=== PATIENT | female | born 1965 | race Caucasian/White ===

== ENCOUNTER → 2016-08-31 | Outpatient (CLI) | payer OTHER ==
[2016-08-31 14:21] VITALS: BP 97/66; PULSE 74; RESP 14; TEMP 98.7
--- NOTE | 2016-08-31 14:35 | P.CONS ---
History of Present Illness - Reason for Consult Consult date: 08/31/16 - History of Present Illness This is the initial consultation visit for this 50 years old female, with a chronic history of severe neck pain with radiation to the upper extremity and also is complaining of severe low back pain with radiation to the lower extremities, she reported that this pain started more than 30 years ago , and she denies any initiating event , the pain in the neck radiating to the upper extremity associated with numbness and tingling sensation, also the low back pain radiated to the lower extremity associated with numbness and tingling sensation, the pain is constant and increases with any activity, and interfering with her quality of life, she denies any motor or sensory deficit she denies any fever or night sweats, and she denies any change in the bowel movements or urination, she tried physical therapy in the past and had no benefit from it, and she is her today trying to find that there is anything be done to help her low back pain and neck pain. Medications and Allergies Home Medications Medication Instructions Recorded Confirmed Type Buprenorphine HCl/Naloxone HCl 10 mg SL BID 08/31/16 08/31/16 History [Suboxone 8 mg-2 mg Sl Film] Citalopram Hydrobromide [CeleXA] 40 mg PO DAILY 08/31/16 08/31/16 History Ibuprofen [Motrin] 800 mg PO Q8HR PRN 08/31/16 08/31/16 History Simvastatin [Zocor] 20 mg PO HS 08/31/16 08/31/16 History Tiotropium [place] [Spiriva 1 spray INHALATION DAILY 08/31/16 08/31/16 History Respimat] Allergies Allergy/AdvReac Type Severity Reaction Status Date / Time Penicillins Allergy Unknown Verified 08/31/16 14:05 Physical Exam Vitals: Intake and Output 08/30/16 08/31/16 08/31/16 22:59 06:59 14:59 Other: Weight 60.781 kg Patient Weight 09/01/16 06:59 Weight 60.781 kg Social history : smoker half a pack per day for more than 30 years, NO ETOH ,, history of heroin addiction and she is currently on Suboxone Family history : , positive for rheumatoid arthritis Review of Systems : 1- Constitutional : no chills , no fever , no night sweats , 2- Ears : no ear discharge , no change in hearing 3-Nose, Mouth ,Throat ; no bleeding gums, no sore throat , no epistaxis , 4-Cardiovascular : Denies chest pain, , no orthopnea , no palpitation 5-Respiratory : Denies cough , no dyspnea , no hemoptysis 6-Gastrointestinal :, no change in bowel habits , no coffee- ground emesis . 7-Genitourinary : No hematuria , no discharge , no incontinence, 8-Musculoskeletal : No gait dysfunction , report low back pain , reports neck pain , 9- Neurological : no ataxia , no tremor , no sezure , 10-Psychatric , no suicidal ideation no hallucination , anxious 11- Endocrine : no cold intolerence , no polyuria , no polydypsia , 12-Hematologic : no easy bleeding , no easy brusing , 13-Allergic / immunology : no angioedema , no wheezing ,no allergic rhinitis 14-Integumentary : no brttle nails , no change hair / nails , no foot/leg ulcers . Physical Examinations : 1-Constitutional : Cooperative , not in acute distress . 2-HEENT : nech ; supple , no Lymphadenopathy , no Thyromegaly , :eyes , no icterus, no photophobia . ENT : , normal oropharynx , no Thrush 3- Respiratory : Chest clear to auscultations Bilaterally , no wheezing . 4- Cardiovascular : regular rate and rhythem , S1 , S2 , no S3 , no S4. 5- Gastrointestinal: abdomen soft no tenderness , no organomegally . 6- Genitourinary : Defferred . 7-Integumentary : No cellulitis , no ulcers , normal skin turgor , no cyanotic . 8- neurologic : Cranial nerve II to XII intact , no focal neurological deffecit 9-psychatric : alert , oriented X 3 , appropriate affect , intact judgment and insight . 10-Lymphatic : no Lymphadenopathy. 11- musculoskeltal: normal gait exams of the cervical spine = motor stregnth in the deltoid and biceps, normal right side , normal Left side motor stregnth biceps and the wrist extensors normal right side ,normal left side . motor stregnth in the triceps muscle . normal Right side , normal Left side deep tendon reflexes normal at the biceps , normal at Brachioradialis , normal at triceps. positive cervical facet loading test . Multiple trigger point in the cervical paravertebral area, and upper thoracic trapezius muscles exams of the Lumber spine = moter stegnth lower extremities , thigh and legs 5/5 Right side , 5/5 Left side deep tendon reflexes : normal Knee Jerk , normal ankle Jerk positive lumber facet Loading Test Range of motion of the lumbar spine Flexion 30 degrees, extension 10 degrees strait leg raising test , positive at degree Fabere test positive RT and positive LT . Tenderness over the trochanteric bursa bilaterally Results Comments: MRI of the cervical spine= C5 6 cervical disc bulging and C6 7 disc degeneration MRI of the lumbar spine= L4 5 disc desiccation and L3 4 disc protrusion and L1- 2 disc bulging Assessment and Plan Plan: Assessment and plan = - Lumbar radiculopathy, lumbar herniated disc disease and lumbar degenerative disc disease -Cervical radiculopathy, cervical degenerative disc disease , -History of fibromyalgia - diagnoses, prognosis, and treatment options including but not limited to physical therapy, surgical interventions, interventional therapies and medication management including narcotics and adjuvant medication were discussed with the patient and all questions answered to the patient's satisfaction. -medication refile = patient could benefit from Lyrica 25 mg 3 times a day -procedure= patient could benefit from lumbar epidural steroid injection under fluoroscopy guidance Time with Patient: Greater than 30
== END | disposition home or self-care (01) ==
LOC: PNWHC3 13:34
PROVIDERS: ATTEND Specialist
DX: M51.16 Intervertebral disc disorders with radiculopathy, lumbar region (principal); M50.10 Cervical disc disorder with radiculopathy, unspecified cervical region; Z79.899 Other long term (current) drug therapy; Z88.0 Allergy status to penicillin
CPT/HCPCS: 99201

== ENCOUNTER 2016-10-04 06:15 | Day surgery (SDC) | payer OTHER ==
[2016-10-03 10:58] VITALS: BMI 22.1
[2016-10-04 06:40] VITALS: TEMP 97.9
[2016-10-04] MEDS ORDERED: LACTATED RINGERS 1,000 ML IV ONE (06:42)
[2016-10-04] MEDS ORDERED: LIDOCAINE 1% 20 ML VIAL (10MG/ML) FOR IV START INTRADERMA ONE (06:42)
[2016-10-04] MEDS ORDERED: IOHEXOL 180 MG/ML 1 ML ML ONE (07:17)
[2016-10-04] MEDS ORDERED: MIDAZOLAM 2 MG/2 ML VIAL ONE (07:17)
[2016-10-04] MEDS ORDERED: DEXAMETHASONE SOD PHOSPHATE 10 MG/ML 1 ML VIAL ONE (07:17)
[2016-10-04] MEDS ORDERED: fentaNYL (PF) 50 MCG/ML 2 ML AMP ONE (07:17)
[2016-10-04] MEDS ORDERED: IV FLUID CONTINUATION 600 ML IV ONE (07:40)
--- NOTE | 2016-10-04 07:43 | P.PCN ---
Date of Procedure: 10/04/16 Preoperative Diagnosis: Postoperative Diagnosis: Procedure(s) Performed: Implants: Surgeon: Ghassan Land Pathology: none sent Condition: stable Disposition: PACU Indications for Procedure: Operative Findings: Description of Procedure: PREOPERATIVE DIAGNOSIS: 1-Lumbar radiculitis. POSTOPERATIVE DIAGNOSIS: 1-Lumbar radiculitis. PROCEDURE 1. Lumbar epidural steroid injection under fluoroscopic guidance at the L4-L5 level. 2. Lumbar epidurogram. ANESTHESIA: Local with 1% lidocaine; IV sedation with Versed/fentanyl. EBL: Minimal PROCEDURE INDICATION: The patient with low back pain and radiculitis symptoms unresponsive to conservative treatment. Fluoroscopy was used to optimize visualization of the needle placement and to maximize safety. No use of blood thinners, procedure #1 today. PROCEDURE DESCRIPTION / TECHNIQUE: The patient was seen and identified in the preoperative area. Risks, benefits, complications, and alternatives were discussed with the patient, including but not limited to bleeding, infection, nerve damage, allergic reactions to medications, and incomplete pain relief. The patient agreed to proceed with the procedure and signed the consent after all questions were answered. IV was started, and vital signs were stable. Patient was taken to the OR and time out was completed to confirm patient position, procedure, laterality of pain, and allergies. The patient was placed in the prone position on procedure table and a pillow was placed under the abdomen to reduce lumbar lordosis. The lumbosacral area was prepped and draped in the usual sterile fashion. Critical pause was taken. Vital signs were closely monitored during the procedure. Conscious sedation was used during the procedure to decrease patients anxiety. Using anterior-posterior fluoroscopy, the L4-L5 interlaminar space was identified and the skin over this site was marked and then infiltrated with 1% lidocaine subcutaneously. Subsequently, a 20-gauge 3.5-inch Tuohy epidural needle was inserted and advanced toward the epidural space using the Loss of resistance technique and guided by AP and lateral fluoroscopy. The correct needle position in the epidural space was verified with the injection of 2 mL of the water soluble contrast dye Omnipaque 300 contrast and observing an excellent epidurogram with the epidural spread of the dye, after negative aspiration for blood and CSF and in the absence of paresthesias. Again after negative aspiration, a 8 ml mixture containing 20 mg of Decadron and 5 ml of preservative free Normal Saline, and 2 ml of preservative free lidocaine 1% solution was injected and a washout of epidurogram was seen. Needle was withdrawn intact, skin was cleansed, and bandages were applied. COMPLICATIONS: None COMMENTS: DISPOSITION / PLANS: The patient was placed in a supine position and transferred to the recovery area in a stable condition for observation. There was no evidence of lower extremity motor or sensory deficit after the procedure. Patient was discharged from the recovery room after meeting discharge criteria. Home discharge instructions were given to the patient by the staff. The patient was reexamined prior to discharge and there were no issues. The patient will schedule a follow up in the clinic in 2-4 weeks.
[2016-10-04] MEDS ORDERED: LACTATED RINGERS 1,000 ML IV SCH (07:45)
--- NOTE | 2016-10-04 07:52 | FL ---
EXAMINATION TYPE: FL guided pain mgmt statistic DATE OF EXAM: 10/04/2016 7:36 AM HISTORY: Pain 6 sec fl time used during lumbar epidural 3 images scanned into pacs
[2016-10-04 08:00] VITALS: RESP 18
[2016-10-04 08:19] VITALS: BP 98/56; PULSE 58
== END 2016-10-04 08:42 | disposition home or self-care (01) ==
LOC: ORPAIN 06:15
PROVIDERS: ATTEND Anesthesiology
DX: G89.29 Other chronic pain (principal); M54.5 Low back pain; M54.16 Radiculopathy, lumbar region; F32.9 Major depressive disorder, single episode, unspecified; Z79.1 Long term (current) use of non-steroidal anti-inflammatories (NSAID); Z79.899 Other long term (current) drug therapy; Z88.0 Allergy status to penicillin
CPT/HCPCS: 62323; 99152; J2250; J1100; Q9965; J3010

== ENCOUNTER → 2016-10-25 | Outpatient (CLI) | payer OTHER ==
[2016-10-25 16:53] LABS: Basophils # (A) 0.1 k/uL (0-0.2); Basophils % (A) 1 %; CH 30.7; CHCM 34.5; Eosinophils # (A) 0.1 k/uL (0-0.7); Eosinophils % (A) 2 %; HCT 43.4 % (34.0-46.0); HDW 2.73; HGB 14.7 gm/dL (11.4-16.0); Luc # (Auto) 0.23; Luc % (Auto) 4; Lymphocytes # (A) 2.6 k/uL (1.0-4.8); Lymphocytes % (A) 41 %; MCH 30.4 pg (25.0-35.0); MCV 89.5 fL (80.0-100.0); Mean Platelet Volume 6.7; Monocytes # (A) 0.3 k/uL (0-1.0); Monocytes % (A) 5 %; Neutrophils # (A) 3.1 k/uL (1.3-7.7); Neutrophils % (A) 49 %; RBC 4.85 m/uL (3.80-5.40); RDW 13.6 % (11.5-15.5); WBC 6.4 k/uL (3.8-10.6); WBC (Perox) 6.41
[2016-10-25 17:03] LABS: Appearance,Urine Clear (Clear); Bilirubin,Urine Negative (Negative); Glucose,Urine (UA) Negative (Negative); Ketones,Urine Negative (Negative); Leukocyte Esterase,Urine Negative (Negative); Nitrite,Urine Negative (Negative); Protein,Urine Negative (Negative); Specific Gravity,Urine 1.008 (1.001-1.035); UA Billing (MACRO vs. MICRO) CHEM; Urobilinogen,Urine <2.0 mg/dL (<2.0)
[2016-10-25 17:11] LABS: ALT 15 U/L (9-52); AST 15 U/L (14-36); Alkaline Phosphatase 84 U/L (38-126); Anion Gap 8 mmol/L; Bilirubin, Delta 0.3 mg/dL (0.0-0.2); Blood Urea Nitrogen 23 mg/dL (7-17); Calcium 10.3 mg/dL (8.4-10.2); Carbon Dioxide 21 mmol/L (22-30); Chloride 112 mmol/L (98-107); Glucose 91 mg/dL (74-99); Non-African American GFR(MDRD) >60 (>60 ml/min/1.73 sqM); Potassium 4.2 mmol/L (3.5-5.1); Sodium 141 mmol/L (137-145); Total Bilirubin 0.6 mg/dL (0.2-1.3); Total Protein 7.8 g/dL (6.3-8.2)
[2016-10-26 16:07] LABS: HCV Qualitative Result Not detected (Not detected)
== END | disposition home or self-care (01) ==
LOC: LABWHC1 16:20
DX: N28.9 Disorder of kidney and ureter, unspecified (principal); B18.2 Chronic viral hepatitis C
CPT/HCPCS: 36415; 80053; 81003; 82248; 85025; 87522

== ENCOUNTER 2016-11-03 09:00 | Day surgery (SDC) | payer OTHER ==
[2016-11-01 12:37] VITALS: BMI 21.7
[2016-11-03 09:44] VITALS: TEMP 97.3
[2016-11-03] MEDS ORDERED: LIDOCAINE 1% 20 ML VIAL (10MG/ML) FOR IV START INTRADERMA ONE (10:00)
[2016-11-03] MEDS: LACTATED RINGERS 1,000 ML IV SCH ×2 (10:00→10:02)
[2016-11-03] MEDS ORDERED: MIDAZOLAM 2 MG/2 ML VIAL ONE (10:06)
[2016-11-03] MEDS ORDERED: IOHEXOL 180 MG/ML 1 ML ML ONE (10:06)
[2016-11-03] MEDS ORDERED: DEXAMETHASONE SOD PHOS (MDV) 100 MG/10 ML VIAL ONE (10:06)
--- NOTE | 2016-11-03 10:20 | P.PCN ---
Date of Procedure: 11/03/16 Preoperative Diagnosis: Postoperative Diagnosis: Procedure(s) Performed: PREOPERATIVE DIAGNOSIS: 1- Lumbar Degenerative Disc Diseases 2-Lumbar radiculopathy. 3-lumbar herniated disc disease. 4-cervical radiculopathic POSTOPERATIVE DIAGNOSIS: same as preoperative diagnosis PROCEDURE 1. Lumbar epidural steroid injection under fluoroscopic guidance at the L4-5 level. 2. Lumbar epidurogram. ANESTHESIA: Local with 1% lidocaine 3 ml and IV sedation with Versed 2 mg . EBL: Minimal PROCEDURE INDICATION: The patient with low back pain and radiculitis symptoms unresponsive to conservative treatment. Fluoroscopy was used to optimize visualization of the needle placement and to maximize safety. PROCEDURE DESCRIPTION / TECHNIQUE: The patient was seen and identified in the preoperative area. Risks, benefits , complications including but not limited to infections ,bleeding ,allergic reaction to the medications ,nerve damage and not complete pain releife , and alternatives were discussed with the patient. The patient agreed to proceed with the procedure and signed the consent. IV was started, and vital signs were stable. Patient was taken to the OR and time out was completed. The patient was placed in the prone position on procedure table and a pillow was placed under the abdomen to reduce lumbar lordosis. The lumbosacral area was prepped and draped in the usual sterile fashion.ere closely monitored during the procedure. Conscious sedation was used during the procedure to decrease patients anxiety. Vital signs was monitered during the entire procedure. Using anterior-posterior fluoroscopy, the L4-5 interlaminar space was identified and the skin over this site was marked and then infiltrated with 1% lidocaine subcutaneously. Subsequently, a 20-gauge Tuohy epidural needle was inserted and advanced toward the epidural space using the ``Loss of resistance technique and guided by AP and lateral fluoroscopy. The correct needle position in the epidural space was verified with the injection of 2 mL of the water soluble contrast dye Omnipaque 180 contrast and observing an excellent epidurogram with the epidural spread of the dye, after negative aspiration for blood and CSF and in the absence of paresthesias. Again after negative aspiration, a 6 ml mixture containing 20 mg of Dexamethasone and 2 ml of preservative free Normal Saline, and 2 ml of preservative free lidocaine 1% solution was injected and a washout of epidurogram was seen. Needle was withdrawn intact, skin was cleansed, and bandages were applied. COMPLICATIONS: None DISPOSITION / PLANS: The patient was placed in a supine position and transferred to the recovery area in a stable condition for observation. There was no evidence of lower extremity motor or sensory deficit after the procedure. Patient was discharged from the recovery room after meeting discharge criteria. Home discharge instructions were given to the patient by the staff. The patient was reexamined prior to discharge. The patient will schedule a follow up in the clinic in 2-4 weeks. Implants: Indications for Procedure: Operative Findings: Description of Procedure:
[2016-11-03 10:32] VITALS: RESP 18
[2016-11-03 10:48] VITALS: BP 96/66; PULSE 66
--- NOTE | 2016-11-03 16:19 | FL ---
EXAMINATION TYPE: FL guided pain mgmt statistic DATE OF EXAM: 11/03/2016 CLINICAL HISTORY: Low back pain. TECHNIQUE: Fluoroscopy. COMPARISON: None. FINDINGS: Fluoroscopic guidance was provided during pain relief procedure performed by Dr. Casillas . A total of 1 seconds of fluoroscopic time was utilized during the procedure and 1 spot image is ac quired. Single image acquired shows needle localization at L4 level. IMPRESSION: As Above.
== END 2016-11-03 10:50 | disposition home or self-care (01) ==
LOC: ORPAIN 09:00
PROVIDERS: ATTEND Specialist
DX: M51.16 Intervertebral disc disorders with radiculopathy, lumbar region (principal); M54.12 Radiculopathy, cervical region; Z88.0 Allergy status to penicillin
CPT/HCPCS: 62323; J2250; Q9965; J1100

== ENCOUNTER → 2017-02-22 | Outpatient (CLI) | payer OTHER ==
[2017-02-22 14:53] VITALS: BP 111/63; PULSE 69; RESP 18; TEMP 98.2
--- NOTE | 2017-02-22 15:08 | P.PN ---
Progress Note - Text Progress Note Date: 02/22/17 Patient returns for followup for chronic neck and back pain with radiation to all extremities with numbness/tingling. Patient recently underwent LESI x 2, which provided some relief for short interval. Patient continues on suboxone and Lyrica medications for pain with some relief. Patient denies adverse drug effects from medications. Today, pt denies new-onset weakness, bowel/bladder incontinence, or any other signs or symptoms of cauda equina syndrome. There are no signs of acute intoxication, and no indications of medication diversion or overuse. In addition to above, 13-point review of systems is also negative for chest pain , shortness of breath, changes in vision, changes in hearing, new onset weakness , abdominal pain, diarrhea, extreme fatigue, malaise, fever, skin changes, homicidal or suicidal ideation, or bowel or bladder incontinence. Vital Signs: Reviewed in EMR Gen: WDWN, AAOx3, NAD HEENT: NCAT, EOMI, hearing grossly normal Pulm: resp unlabored Abd: soft, NT, ND Neck: supple, trachea midline Thorax: + tenderness over lateral ribs on left side ROM in flexion lumbar spine: reduced ROM in extension lumbar spine: reduced Lumbar paravertebral tenderness: + Facet loading: + bilateral, L > R SI joint tenderness: + L > R Andrea's test: Straight leg raise: Lower extremity: decreased ROM dorsiflexion/plantarflexion strength, hip flexion/extension, and knee flexion/extension secondary to pain Neuro: CN II-XII grossly intact, muscle strength lower extremities PRESERVED Imaging: thoracic spine x-ray dated 02/07/2017 demonstrates mild to moderate spondylosis especially in the mid to lower thoracic spine. There is some reversal of the normal cervical lordosis and lower cervical spine. Assessment: 1. intercostal neuralgia 2. thoracic spondylosis 3. lumbar radic Plan: 1. Explanation: Opioid and psychological risk scores were reviewed. Diagnoses , prognoses, and multiple treatment options including but not limited to physical therapy, interventional therapies, adjuvant medical therapies, narcotic medication therapies, and surgery were discussed with the patient and all questions were answered to the patient's satisfaction. 2. Opioid agreement: Patient has previously signed narcotic agreement, and was orally counseled to not overuse, abuse, divert, or cell medications, and to take them as prescribed by only 1 healthcare provider. The patient was also counseled to store opioid medications in a safe and preferably locked location. Patient was also counseled against driving or operating heavy equipment while using narcotic medications and also to not use alcohol or any illicit or recreational drugs. The patient verbalized understanding that lack of compliance with any of the above and likely result in failure to renew narcotic prescriptions, possible discharge from the clinic, and possible legal ramifications thereafter if indicated. 3. Counseling: The patient was counseled extensively on SMOKING CESSATION, BODY MASS INDEX, EXERCISE. Specifically, the patient was instructed regarding the importance of smoking cessation, weight control, and exercise in the context of both chronic pain and overall health. 4. Procedures: left intercostal nerve blocks (focus on ribs 5-8) 5. Consultations: None 6. Investigations: None 7. Medications: increase Lyrica to 50 mg #90 with one refill; patient gets suboxone from other physician 8. Disposition: f/u for procedure as scheduled PQRS measures: 1-Patient's medications are documented in the chart. 2-Tobacco use is negative, counseling given 3-Patient has not had a pneumococcal vaccine. 4-Advanced care planning discussed, patient unable to give. 5-Opioid contract NOT signed with the patient. 6-Pain positive, follow-up visit or procedure scheduled 7-Patient's blood pressure measured and documented, and WNL 8-Patient's weight was measured, and body mass index WNL. 9-Patient WAS NOT identified as an unhealthy alcohol user.
== END | disposition home or self-care (01) ==
LOC: PNWHC3 14:30
PROVIDERS: ATTEND Anesthesiology
DX: M47.814 Spondylosis without myelopathy or radiculopathy, thoracic region (principal); G58.8 Other specified mononeuropathies
CPT/HCPCS: 99211

== ENCOUNTER 2017-03-29 07:34 | Day surgery (SDC) | payer OTHER ==
[2017-03-28 13:01] VITALS: BMI 24.5
[~2017-03-29 07:34] MED LIST: LACTATED RINGERS 1,000 ML IV SCH
[2017-03-29 07:53] VITALS: TEMP 98
--- NOTE | 2017-03-29 09:24 | P.PCN ---
Date of Procedure: 03/29/17 Procedure(s) Performed: PROCEDURE: left sided , T6,T7 ,T8 ,T9 . T10, Intercostal nerve block under fluoroscopic guidance. PREOP DIAGNOSIS: Intercostal neuralgia. POSTOP DIAGNOSIS: Intercostal neuralgia. ANESTHESIA: IV sedation with Versed,3 MG and lidocaine 1% 5 ml EBL: Minimal PREPARATION OPERATOR: COMPLICATION: None. IV FLUIDS: 100 mL of normal saline. PROCEDURE INDICATION: Chronic left -sided thoracic pain secondary to intercostals neuralgia who failed the conservative treatments. PROCEDURE DESCRIPTION: The patient was seen and identified in the preoperative area. Risks, benefits, complications, and alternatives were discussed with the patient. The patient agreed to proceed with the procedure and signed the consent. IV was started. Vital signs were stable throughout the procedure. The patient was taken to the procedure room and was placed in the prone position on the procedure table. The thoracic area was prepped and draped in the usual sterile fashion. Critical pause was taken. Using anteroposterior fluoroscopy, the T6 , rib on the left side was identified. An area approximately 2 inches lateral to the vertebral midline was localized under fluoroscopy. Subsequently, a 25-gauge, 3-1/2-inch needle was advanced under fluoroscopy towards the inferior aspect of the rib. After making contact with the rib, the needle was walked off and carefully slipped inferiorly off the rib. After negative aspiration and with the absence of paresthesias, 1,5 ml of Bupivacaine 0.5 % . The needle was subsequently removed ,and the same procedure was repeated at the levels of T7 , T8 , T9 , and T10. (7.5 ml of Marcaine 0.5% mixed with 40 mg of Kenalog used for the procedure 1-1/ 2 mL of the mixture injected at each level ) At the end of the procedure, skin was cleansed, and bandages were applied. Patient denied any shortness of breath after the procedure. Lungs auscultation showed clear and equal air entry bilaterally after the procedure. The patient tolerated the procedure well without complications. Patient was observed in the recovery area until he/she met all discharge criteria. cxr ordered to rule out pneumothorax,
[2017-03-29] MEDS ORDERED: IV FLUID CONTINUATION 1,000 ML IV ONE (09:26)
[2017-03-29 09:29] VITALS: RESP 18
[2017-03-29 09:46] VITALS: BP 103/76; PULSE 67
--- NOTE | 2017-03-29 09:47 | FL ---
EXAMINATION TYPE: FL guided pain mgmt statistic DATE OF EXAM: 03/29/2017 HISTORY: Pain Dr. Dima Ying 5 sec fl time. 2 images scanned. Lt nerve interco blk
--- NOTE | 2017-03-29 09:49 | XR ---
EXAMINATION TYPE: XR chest 1V portable DATE OF EXAM: 03/29/2017 HISTORY: Shortness of breath. COMPARISON: 03/01/2017 TECHNIQUE: Single view of the chest is submitted. FINDINGS: Demonstrated are scattered senescent parenchymal change. There is no evidence for focal infiltrate. The heart is stable. Hilar and mediastinal structures are within normal limits. Degenerative changes are seen of the dorsal spine. IMPRESSION: 1. Chronic changes without evidence for acute pulmonary disease.
== END 2017-03-29 10:04 | disposition home or self-care (01) ==
LOC: ORPAIN 07:34
PROVIDERS: ATTEND Specialist
DX: G58.8 Other specified mononeuropathies (principal); M79.7 Fibromyalgia; Z88.0 Allergy status to penicillin
CPT/HCPCS: 71010; 64421; J2250; J3301; 99152

== ENCOUNTER 2017-06-01 15:55 | Emergency (ER) | payer OTHER ==
[2017-06-01 16:06] VITALS: RESP 20
--- NOTE | 2017-06-01 16:51 | ED ---
Psych HPI - General Chief Complaint: Psychiatric Symptoms Stated Complaint: hallucinations Time Seen by Provider: 06/01/17 16:33 Source: patient, RN notes reviewed Mode of arrival: ambulatory Limitations: no limitations - History of Present Illness Initial Comments: This a 51-year-old female presents emergency Department chief complaint of hallucinations. Patient states that she is hearing and seeing people. She states is primarily her diet family. Patient states that she is not suicidal or homicidal that she cannot tolerate these hallucinations. She does have a history of drug abuse no alcohol abuse. She states she takes Suboxone. Patient does see psychiatrist and counselor. But states that she has missed several appointments. Patient has been taking her medications as directed. Patient is brought to emergency department via friend. Patient also states that she has had problems with epistaxis secondary to the heat most likely. States that she has a dry nose and some bright red blood. Patient also states occasionally she coughs so hard that she feels that she coughs up some blood. Denies any abdominal pain denies chest pain or shortness breath. Patient is a heavy smoker. She has complain of mild sore throat at this time. No fever no chills. - Related Data Home Medications Medication Instructions Recorded Confirmed Buprenorphine HCl/Naloxone HCl 1 film SL BID 08/31/16 06/01/17 [Suboxone 8 mg-2 mg Sl Film] Citalopram Hydrobromide [CeleXA] 40 mg PO DAILY 08/31/16 06/01/17 Ibuprofen [Motrin] 800 mg PO Q8HR PRN 08/31/16 06/01/17 Simvastatin [Zocor] 20 mg PO HS 08/31/16 06/01/17 QUEtiapine [SEROquel] 50 mg PO QAM 02/03/17 06/01/17 QUEtiapine [SEROquel] 100 mg PO HS 02/03/17 06/01/17 hydrOXYzine PAMOATE 50 mg PO TID 02/03/17 06/01/17 Omeprazole Magnesium [Prilosec OTC] 20 mg PO DAILY 03/28/17 06/01/17 Previous Rx's Medication Instructions Recorded Pregabalin [Lyrica] 50 mg PO TID #90 cap 02/22/17 Allergies Allergy/AdvReac Type Severity Reaction Status Date / Time Penicillins Allergy RASH,VOMITI Verified 06/01/17 16:06 NG Review of Systems ROS Statement: Those systems with pertinent positive or pertinent negative responses have been documented in the HPI. ROS Other: All systems not noted in ROS Statement are negative. Past Medical History Past Medical History: COPD, Fibromyalgia, Hyperlipidemia, Osteoarthritis (OA) Additional Past Medical History / Comment(s): degenerative bone disease History of Any Multi-Drug Resistant Organisms: None Reported Past Surgical History: No Surgical Hx Reported Additional Past Surgical History / Comment(s): EAR SURGERY -REMOVAL FOREIGN BODY , LAPAROSCOPIC EXAM Past Anesthesia/Blood Transfusion Reactions: No Reported Reaction Past Psychological History: Anxiety, Depression, Panic Disorder Smoking Status: Current every day smoker Past Alcohol Use History: None Reported Past Drug Use History: None Reported - Past Family History Father History Unknown: Yes Family Medical History: Cancer General Exam Limitations: no limitations General appearance: alert, in no apparent distress Head exam: Present: atraumatic, normocephalic, normal inspection Eye exam: Present: normal appearance, PERRL, EOMI. Absent: scleral icterus, conjunctival injection, periorbital swelling ENT exam: Present: mucous membranes moist, TM's normal bilaterally, normal external ear exam. Absent: normal oropharynx (Mild erythema posterior pharynx) Neck exam: Present: normal inspection, full ROM. Absent: tenderness, meningismus, lymphadenopathy Respiratory exam: Present: normal lung sounds bilaterally. Absent: respiratory distress, wheezes, rales, rhonchi, stridor Cardiovascular Exam: Present: regular rate, normal rhythm, normal heart sounds. Absent: systolic murmur, diastolic murmur, rubs, gallop, clicks GI/Abdominal exam: Present: soft, normal bowel sounds. Absent: distended, tenderness, guarding, rebound, rigid Neurological exam: Present: alert, oriented X3, CN II-XII intact Psychiatric exam: Present: anxious Skin exam: Present: warm, dry, intact, normal color. Absent: rash Course Vital Signs 06/01/17 16:00 Temperature 97.4 F L Pulse Rate 80 Respiratory 20 Rate Blood Pressure 129/76 O2 Sat by Pulse 97 Oximetry Medical Decision Making - Medical Decision Making 51-year-old female presented emergency department for psychiatric evaluation, hallucinations patient is not suicidal or homicidal. Patient evaluated by EPS case discussed with on-call psychiatrist recommends outpatient referrals for substance abuse and follow-up with her therapist and psychiatrist. Patient complained of bloody nose this most likely is related to her cocaine abuse. Throat strep is negative this time. - Lab Data Lab Results 06/01/17 06/01/17 Range/Units 16:57 16:57 Urine Opiates Screen Not Detected (NotDetected) Ur Oxycodone Screen Not Detected (NotDetected) Urine Methadone Screen Not Detected (NotDetected) Ur Propoxyphene Screen Not Detected (NotDetected) Ur Barbiturates Screen Not Detected (NotDetected) U Tricyclic Antidepress Not Detected (NotDetected) Ur Phencyclidine Scrn Not Detected (NotDetected) Ur Amphetamines Screen Not Detected (NotDetected) U Methamphetamines Scrn Not Detected (NotDetected) U Benzodiazepines Scrn Not Detected (NotDetected) Urine Cocaine Screen Detected H (NotDetected) U Marijuana (THC) Screen Not Detected (NotDetected) Group A Strep Rapid Negative (Negative) Disposition Clinical Impression: Hallucinations, Cocaine abuse, Acute pharyngitis Disposition: HOME SELF-CARE Condition: Stable Instructions: Cocaine Abuse (ED) Additional Instructions: Please return to the Emergency Department if symptoms worsen or any other concerns. Referrals: Ruy Schroeder MD [Primary Care Provider] - 1-2 days Time of Disposition: 18:45
[2017-06-01 17:50] LABS: Amphetamine Screen,Urine Not Detected (NotDetected); Barbiturate Screen,Urine Not Detected (NotDetected); Benzodiazepines Screen,Urine Not Detected (NotDetected); Cocaine Screen,Urine Detected (NotDetected); Methadone Screen, Urine Not Detected (NotDetected); Opiate Screen,Urine Not Detected (NotDetected); Oxycodone Screen, Urine Not Detected (NotDetected); Phencyclidine Screen,Urine Not Detected (NotDetected); Tricyclic Antidepressant,Urine Not Detected (NotDetected); Urn Cannabinoid Scrn Not Detected (NotDetected)
[2017-06-01 18:54] VITALS: BP 116/78; PULSE 71; TEMP 98.8
== END 2017-06-01 19:00 | disposition home or self-care (01) ==
LOC: EC 15:55
DX: R44.3 Hallucinations, unspecified (principal); J02.9 Acute pharyngitis, unspecified; F14.10 Cocaine abuse, uncomplicated; E78.5 Hyperlipidemia, unspecified; F32.9 Major depressive disorder, single episode, unspecified; F41.0 Panic disorder [episodic paroxysmal anxiety]; F17.200 Nicotine dependence, unspecified, uncomplicated; Z79.899 Other long term (current) drug therapy; Z88.0 Allergy status to penicillin
CPT/HCPCS: 80306; 87081; 87430; 99284

== ENCOUNTER → 2017-07-10 | Outpatient (CLI) | payer OTHER ==
[2017-07-10 14:53] VITALS: BP 112/78; PULSE 94; RESP 16
--- NOTE | 2017-07-10 15:04 | P.PN ---
Progress Note - Text Progress Note Date: 07/10/17 Patient returns for followup for chronic neck and back pain with radiation to all extremities with numbness/tingling. Patient last underwent intercostal NBs in late 2017, which provided almost complete relief since those procedures. Patient continues on suboxone (from other physician) and Lyrica medications for pain with some relief. Patient denies adverse drug effects from medications. Today, pt denies new-onset weakness, bowel/bladder incontinence, or any other signs or symptoms of cauda equina syndrome. There are no signs of acute intoxication, and no indications of medication diversion or overuse. In addition to above, 13-point review of systems is also negative for chest pain , shortness of breath, changes in vision, changes in hearing, new onset weakness , abdominal pain, diarrhea, extreme fatigue, malaise, fever, skin changes, homicidal or suicidal ideation, or bowel or bladder incontinence. Vital Signs: Reviewed in EMR Gen: WDWN, AAOx3, NAD HEENT: NCAT, EOMI, hearing grossly normal Pulm: resp unlabored Abd: soft, NT, ND Neck: supple, trachea midline Thorax: + tenderness over lateral ribs on left side, improved ROM in flexion lumbar spine: reduced ROM in extension lumbar spine: reduced Lumbar paravertebral tenderness: + Facet loading: + bilateral, L > R SI joint tenderness: + L > R Andrea's test: + L > R Straight leg raise: neg Neuro: CN II-XII grossly intact, muscle strength lower extremities PRESERVED Imaging: thoracic spine x-ray dated 02/07/2017 demonstrates mild to moderate spondylosis especially in the mid to lower thoracic spine. There is some reversal of the normal cervical lordosis and lower cervical spine. Assessment: 1. intercostal neuralgia 2. thoracic spondylosis 3. lumbar radic Plan: 1. Explanation: Opioid and psychological risk scores were reviewed. Diagnoses , prognoses, and multiple treatment options including but not limited to physical therapy, interventional therapies, adjuvant medical therapies, narcotic medication therapies, and surgery were discussed with the patient and all questions were answered to the patient's satisfaction. 2. Opioid agreement: Patient has previously signed narcotic agreement, and was orally counseled to not overuse, abuse, divert, or cell medications, and to take them as prescribed by only 1 healthcare provider. The patient was also counseled to store opioid medications in a safe and preferably locked location. Patient was also counseled against driving or operating heavy equipment while using narcotic medications and also to not use alcohol or any illicit or recreational drugs. The patient verbalized understanding that lack of compliance with any of the above and likely result in failure to renew narcotic prescriptions, possible discharge from the clinic, and possible legal ramifications thereafter if indicated. 3. Counseling: The patient was counseled extensively on SMOKING CESSATION, BODY MASS INDEX, EXERCISE. Specifically, the patient was instructed regarding the importance of smoking cessation, weight control, and exercise in the context of both chronic pain and overall health. 4. Procedures: none 5. Consultations: None 6. Investigations: UDS + cocaine 7. Medications: Lyrica 50 mg #90 with no refill 8. Disposition: Patient discharged for + cocaine UDS in emergency room and she will not be rescheduled at our clinic. PQRS measures: 1-Patient's medications are documented in the chart. 2-Tobacco use is negative, counseling given 3-Patient has not had a pneumococcal vaccine. 4-Advanced care planning discussed, patient unable to give. 5-Opioid contract NOT signed with the patient. 6-Pain positive, follow-up visit or procedure scheduled 7-Patient's blood pressure measured and documented, and WNL 8-Patient's weight was measured, and body mass index WNL. 9-Patient WAS NOT identified as an unhealthy alcohol user.
== END | disposition home or self-care (01) ==
LOC: PNWHC3 14:27
PROVIDERS: ATTEND Anesthesiology
DX: G89.29 Other chronic pain (principal); M54.2 Cervicalgia; M54.16 Radiculopathy, lumbar region; M47.814 Spondylosis without myelopathy or radiculopathy, thoracic region; Z79.891 Long term (current) use of opiate analgesic
CPT/HCPCS: 99211

== ENCOUNTER → 2019-07-22 | Outpatient (CLI) | payer OTHER ==
--- NOTE | 2019-07-22 14:39 | MM ---
Reason for exam: screening (asymptomatic). Physical Findings: A clinical breast exam by your physician is recommended on an annual basis and results should be correlated with mammographic findings. MG Screening Mammo w CAD Bilateral CC and MLO view(s) were taken. No prior studies available for comparison. The breast tissue is heterogeneously dense. This may lower the sensitivity of mammography. No suspicious abnormality. Right superior posterior depth right asymmetry 7cm from nipple. ASSESSMENT: Incomplete: need additional imaging evaluation, BI-RAD 0 RECOMMENDATION: Special view mammogram of the right breast. If lesion persists on supplemental views, image directed ultrasound is recommended. [facility] will attempt to contact patient to return for supplemental views and ultrasound if indicated.
== END | disposition home or self-care (01) ==
LOC: RADMAMWWP 13:13
PROVIDERS: ATTEND Physician Assistant
DX: Z12.31 Encounter for screening mammogram for malignant neoplasm of breast (principal)
CPT/HCPCS: 77067

== ENCOUNTER → 2019-07-31 | Outpatient (CLI) | payer OTHER ==
--- NOTE | 2019-08-01 08:20 | MM ---
Reason for exam: additional evaluation requested from abnormal screening. Last mammogram was performed less than 1 month ago. History: Patient is postmenopausal. Physical Findings: Nurse did not find any significant physical abnormalities on exam. MG 3D Work Up W/Cad RT LM, spot compression MLO, and XCCM view(s) were taken of the right breast. Prior study comparison: July 22, 2019, bilateral MG screening mammo w CAD. The breast tissue is heterogeneously dense. This may lower the sensitivity of mammography. Right upper inner quadrant posterior depth 6mm focal asymmetry 8cm from nipple persists on additional views. These results were verbally communicated with the patient and result sheet given to the patient on 07/31/19. ASSESSMENT: Probably benign, BI-RAD 3 RECOMMENDATION: Follow-up diagnostic mammogram of the right breast in 6 months.
== END | disposition home or self-care (01) ==
LOC: RADMAMWWP 14:53
PROVIDERS: ATTEND Family Medicine
DX: R92.8 Other abnormal and inconclusive findings on diagnostic imaging of breast (principal)
CPT/HCPCS: 77065; G0279; 77061

== ENCOUNTER → 2020-07-02 | Outpatient (CLI) | payer OTHER ==
--- NOTE | 2020-07-03 05:12 | MR ---
EXAMINATION TYPE: MR lumbar spine wo con DATE OF EXAM: 07/02/2020 COMPARISON: 02/12/2016 HISTORY: Lower back pain into both legs x several years Multiplanar multiecho imaging of the lumbar spine was performed without contrast. Lumbar vertebra have normal alignment. There is narrowing and decreased signal in the disks from L3 t o S1. There is also some narrowing of the L1-2 disc space. There are small posterior disc herniations from T12 to S1. There is developmentally adequate spinal canal and no spinal stenosis. There is no p araspinal mass. There is no evidence of focal bone destruction. The lumbar neural foramina are fairly well-maintained. IMPRESSION: Multilevel spondylotic changes with small posterior disc herniations. No spinal stenosis. There is ov erall not a significant change compared to old exam.
== END | disposition home or self-care (01) ==
LOC: RADMRIMAIN 16:43
PROVIDERS: ATTEND Family Medicine
DX: M51.26 Other intervertebral disc displacement, lumbar region (principal); M47.816 Spondylosis without myelopathy or radiculopathy, lumbar region
CPT/HCPCS: 72148

== ENCOUNTER 2024-06-17 12:25 | Day surgery (SDC) | payer OTHER ==
[2024-06-13 15:18] VITALS: BMI 24.4
[2024-06-17] MEDS: IV FLUID CONTINUATION 1,000 ML IV ONE (12:42)
[2024-06-17] MEDS: LACTATED RINGERS 1,000 ML IV SCH (13:00)
[2024-06-17 13:08] VITALS: TEMP 97
[2024-06-17] MEDS ORDERED: PROPOFOL 10 MG/ML 20 ML VIAL IV ONE (13:31)
[2024-06-17] MEDS ORDERED: LIDOCAINE 1% INJ 10MG/ML (20 ML MDV) ONE (13:31)
--- NOTE | 2024-06-17 13:53 | P.GSHP ---
History of Present Illness H&P Date: 06/17/24 Chief Complaint: Positive Cologuard test This a 58-year-old female who had a positive Cologuard test. Patient is today for colonoscopy. Past Medical History Past Medical History: COPD, Fibromyalgia, Osteoarthritis (OA) Additional Past Medical History / Comment(s): degenerative bone disease , neuropathy History of Any Multi-Drug Resistant Organisms: None Reported Past Surgical History: No Surgical Hx Reported Additional Past Surgical History / Comment(s): colonoscopy Past Anesthesia/Blood Transfusion Reactions: No Reported Reaction Additional Past Anesthesia/Blood Transfusion Reaction / Comment(s): no blood transfusion Smoking Status: Vaper - Past Family History Father History Unknown: Yes Family Medical History: Cancer Medications and Allergies Home Medications Medication Instructions Recorded Confirmed Type QUEtiapine [SEROquel] 100 mg PO DAILY 02/03/17 06/17/24 History QUEtiapine [SEROquel] 200 mg PO HS 02/03/17 06/17/24 History Buprenorphine HCl/Naloxone HCl 1.5 film PO TID 07/10/17 06/17/24 History [Suboxone 8 mg-2 mg Sl Film] Cariprazine HCl [Vraylar] 6 mg PO DAILY 05/13/24 06/17/24 History lamoTRIgine [LaMICtal] 200 mg PO BID 05/13/24 06/17/24 History Fluticasone/Umeclidin/Vilanter 1 inhalation INHALATION BID 06/13/24 06/17/24 History [Trelegy Ellipta 100-62.5-25] Allergies Allergy/AdvReac Type Severity Reaction Status Date / Time Penicillins Allergy RASH,VOMITI Verified 06/17/24 12:47 NG Surgical - Exam Vital Signs Temp Pulse Resp BP Pulse Ox 97.0 F L 89 16 139/93 95 06/17/24 13:00 06/17/24 13:00 06/17/24 13:00 06/17/24 13:00 06/17/24 13:00 - General well developed, well nourished, no distress - Eyes PERRL - ENT normal pinna - Neck no masses - Respiratory normal expansion - Cardiovascular Rhythm: regular - Abdomen Abdomen: soft, non tender Assessment and Plan Assessment: Positive Cologuard test. Will perform colonoscopy.
--- NOTE | 2024-06-17 13:55 | P.OP ---
Date of Procedure: 06/17/24 Preoperative Diagnosis: Positive Cologuard test Postoperative Diagnosis: Normal colon Procedure(s) Performed: Colonoscopy Anesthesia: MAC Surgeon: Adonay Joya Pathology: none sent Condition: stable Disposition: PACU Description of Procedure: PROCEDURE: The patient was placed on the endoscopy table in the lateral position. Digital rectal examination was performed which revealed no abnormalities. . Flexible colonoscope was then placed in the patient's anus and passed throughout the entire colon. The ileocecal valve was visualized. The cecum, ascending, transverse, descending and sigmoid colon were normal. The rectum was normal as well. There were no masses, polyps or diverticula noted in the entire colon. SUMMARY OF FINDINGS: Normal colonoscopy.
[2024-06-17 14:11] VITALS: BP 100/74; PULSE 74; RESP 16
== END 2024-06-17 14:33 | disposition home or self-care (01) ==
LOC: ORWHC2ENDO 12:25
PROVIDERS: ATTEND Surgery
DX: R19.5 Other fecal abnormalities (principal); J44.9 Chronic obstructive pulmonary disease, unspecified; M79.7 Fibromyalgia; M19.90 Unspecified osteoarthritis, unspecified site; G62.9 Polyneuropathy, unspecified; F31.9 Bipolar disorder, unspecified; F41.0 Panic disorder [episodic paroxysmal anxiety]; F41.9 Anxiety disorder, unspecified; F17.290 Nicotine dependence, other tobacco product, uncomplicated; Z79.899 Other long term (current) drug therapy; Z88.0 Allergy status to penicillin
CPT/HCPCS: 45378; J2003; J2704